=== PATIENT | female | born 1970 | race Caucasian/White ===

== ENCOUNTER 2017-01-21 12:51 | Outpatient (CLI) | payer OTHER ==
--- NOTE | 2017-01-21 15:02 | MRI Report ---
EXAM: RIGHT KNEE MRI WITHOUT CONTRAST EXAM DATE: 01/21/2017 01:37 PM. CLINICAL HISTORY: Knee pain. COMPARISON: None. TECHNIQUE: Multiplanar, multisequence T1-weighted and fluid-sensitive sequences of the knee without c ontrast. Other: None. FINDINGS: Bones: No fractures. Mild lateral patellar subluxation. Mild reactive juxtaarticular marrow edema in the patella. No bone lesions. 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 Medial Meniscus: The medial meniscus is intact. Lateral Meniscus: The lateral meniscus is intact. Cruciate Ligaments: The anterior and posterior cruciate ligaments are intact. Collateral Ligaments: The medial collateral and lateral collateral ligamentous structures are intact. Tendons: The quadriceps, patellar, semimembranosus, and popliteus tendons are unremarkable. Musculature: No edema or fatty atrophy. Other: No significant effusion. No popliteal cyst. No loose bodies. The medial and lateral retinacul a, patellofemoral ligaments and iliotibial band are intact. No bursitis. The subcutaneous tissues and fat pads are unremarkable. IMPRESSION: 1. 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 2. Mild lateral patellar subluxation. 3. No other MRI abnormalities or evidence of internal derangement in the knee. Menisci, collateral an d cruciate ligaments are intact. [facility] SECTION Referring Provider Line: [phone] SITE ID: [id number]
== END 2017-01-21 12:52 | disposition home or self-care (01) ==
LOC: DI 12:51
PROVIDERS: ATTEND Pediatrics
DX: M25.561 Pain in right knee (principal); M23.8X1 Other internal derangements of right knee

== ENCOUNTER 2017-04-19 16:57 | Outpatient (CLI) | payer OTHER ==
--- NOTE | 2017-04-20 19:32 | MRI Report ---
EXAM: LEFT KNEE MRI WITHOUT CONTRAST EXAM DATE: 04/19/2017 05:49 PM. CLINICAL HISTORY: Pain in unspecified knee. COMPARISON: None. TECHNIQUE: Multiplanar, multisequence T1-weighted and fluid-sensitive sequences of the knee without c ontrast. Other: None. FINDINGS: Bones: No fractures or erosive changes. Marginal osteophytosis at the lateral aspect of the patellofe moral joint with "[id number]" appearance and subjacent marrow edema and subchondral cyst formation. There is minimal early arthritic spurring seen at the medial and lateral aspect of the medial and lat eral compartments respectively. Articular Cartilage: Broad areas of grade 4 chondromalacia at lateral aspect of patellofemoral joint. Some broad grade 2 chondromalacia on both sides of the medial and lateral compartments. Medial Meniscus: Medial meniscus shows a small amount of intrameniscal signal, but no tear. Lateral Meniscus: The lateral meniscus is intact. Cruciate Ligaments: The anterior and posterior cruciate ligaments are intact. Collateral Ligaments: The medial collateral and lateral collateral ligamentous structures are intact. Tendons: The quadriceps, patellar, semimembranosus, and popliteus tendons are unremarkable. Musculature: No edema or fatty atrophy. Other: Small joint effusion. No popliteal cyst. No loose bodies. The medial and lateral retinacula a re intact. The subcutaneous tissues and fat pads are unremarkable. IMPRESSION: 1. 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 2. Minimal early marginal arthrosis at the medial and lateral compartments. 3. Small amount of internal signal seen at the posterior horn of the medial meniscus, no tear. Latera l meniscus also is unremarkable. Cruciates and collaterals are also normal. 4. Small joint effusion. No popliteal cyst or loose bodies. [facility]CUL[facility]KE[facility] SECTION Referring Provider Line: [phone] SITE ID: [id number]
== END 2017-04-19 16:58 | disposition home or self-care (01) ==
LOC: DI 16:57
PROVIDERS: ATTEND Pediatrics
DX: M17.12 Unilateral primary osteoarthritis, left knee (principal); M25.462 Effusion, left knee